=== PATIENT | female | born 1970 | race Caucasian/White ===

== ENCOUNTER → 2024-01-10 09:28 | Outpatient (REF) | payer BC, SELFPAY | LOC: WDC 09:28 | PROVIDERS: ATTENDING PHYSICIAN Nurse Practitioner Family; FAMILY PHYSICIAN Nurse Practitioner | DX: N64.52 Nipple discharge (principal) | CPT/HCPCS: 76642; 77062; 77066 ==

== ENCOUNTER → 2024-02-12 16:15 | Outpatient (REF) | payer BC, SELFPAY | LOC: MRI 3T 16:15 | PROVIDERS: ATTENDING PHYSICIAN Surgery; FAMILY PHYSICIAN Internal Medicine | DX: N64.52 Nipple discharge (principal) | CPT/HCPCS: 77049; A9585 ==

== ENCOUNTER → 2024-02-20 11:01 | Outpatient (REF) | payer BC, SELFPAY | LOC: WDC 11:01 | PROVIDERS: ATTENDING PHYSICIAN Surgery; FAMILY PHYSICIAN Nurse Practitioner | DX: R92.8 Other abnormal and inconclusive findings on diagnostic imaging of breast (principal) | CPT/HCPCS: 76642 ==

== ENCOUNTER 2024-08-31 05:09 | Emergency (ER) | payer BC, SELFPAY ==
[2024-08-31 05:15] VITALS: BP 128/82
--- NOTE | 2024-08-31 07:28 | ED.GENMED ---
History of Present Illness
<Darci Rodney DO - Last Filed: 08/31/24 11:08>
General
Chief Complaint: Throat Problem
Source: patient
Exam Limitations: none
Time Seen by Provider: 08/31/24 07:25
Nursing documentation reviewed up to this point in time: agreed with
<MANDI Pacheco Last Filed: 08/31/24 13:57>
History of Present Illness
History of Present Illness:
53 y/o F with no sig pmh
here with 3 days of sore throat and feeling of swelling in the bakc of her throat with subjective chills/fever
pt says she has had this before when she had strep
no cough, vomiting, nekc swelling
able to toelrate secertions
nothing taken todya for pain
Past History
<MANDI Pacheco Last Filed: 08/31/24 13:57>
Past History
ED Past Medical History: Other (kidney stone)
Social History
Tobacco: Non-smoker
Alcohol: None
Drug: None
Personal:
Living: with family
Employment: Employed
Review of Systems
<MANDI Pacheco Last Filed: 08/31/24 13:57>
Review of Systems
Allergies reviewed?: Yes
All Other Systems: Not applicable
Phy Exam
<MANDI Pacheco Last Filed: 08/31/24 13:57>
Physical Exam
Physical Exam:
GENERAL: Alert , in no apparent distress
EYE: pupils equal and reactive
NECK: Supple
ENT: b/l TM s clear, moderate pharyngeal erythema, trace exudate right posterior tonsillar region, uvula is midline, tolerating secretions, no tonsillar hypertrophy or unilateral enlargement of the tonsils, tender bilateral anterior cervical
lymphadenopathy
CARDIAC: Regular rate and rhythm, no edema
LUNGS: Clear breath sounds bilaterally, no acute respiratory distress, no wheezes/rales/rhonchi, occ cough
ABDOMEN: Soft, without focal tenderness, no r/g, no cvat, normal bowel sounds
NEUROLOGICAL: Alert and oriented, no focal neuro deficits
SKIN: Warm and dry, skin intact.
MUSCULOSKELETAL: No edema, well perfused.
PSYCH: Normal and appropriate interaction.
Course
<Darci Rodney, DO - Last Filed: 08/31/24 11:08>
Orders/Labs/Results
Orders:
Orders
08/31/24 05:24
COVID-19 Antigen Urgent
Source: Nasal Swab
Influenza A+B Rapid Molecular Urgent
TESSIE Source: Nasal Swab
Specimen Description:
Date Specimen was Collected: 08/31/24
Time Specimen was Collected: 05:20
Rapid Strep Group A Urgent
TESSIE Source: Throat/Pharynx
Specimen Description:
Date Specimen was Collected: 08/31/24
Time Specimen was Collected: 05:20
08/31/24 07:28
Amoxicillin [Amoxil] 500 mg PO NOW STA
08/31/24 07:30
Amoxicillin 875 mg/Clav 125 mg [Augmentin 875 mg/125 mg] 1 tablet PO NOW STA
Dexamethasone [Decadron] 10 mg PO NOW STA
Vital Signs
Initial and Last Documented VS:
Initial Vital Signs
Temp Pulse Resp BP Pulse Ox
37.8 C 89 16 128/82 99
08/31/24 05:15 08/31/24 05:15 08/31/24 05:15 08/31/24 05:15 08/31/24 05:15
Last Documented Vital Signs
Temp Pulse Resp BP Pulse Ox
37.8 C 89 16 128/82 99
08/31/24 05:15 08/31/24 05:15 08/31/24 05:15 08/31/24 05:15 08/31/24 05:15
<Philomena Schwartz PA-C - Last Filed: 08/31/24 13:57>
Orders/Labs/Results
Orders:
Orders
08/31/24 05:24
COVID-19 Antigen Urgent
Source: Nasal Swab
Influenza A+B Rapid Molecular Urgent
TESSIE Source: Nasal Swab
Specimen Description:
Date Specimen was Collected: 08/31/24
Time Specimen was Collected: 05:20
Rapid Strep Group A Urgent
TESSIE Source: Throat/Pharynx
Specimen Description:
Date Specimen was Collected: 08/31/24
Time Specimen was Collected: 05:20
08/31/24 07:28
Amoxicillin [Amoxil] 500 mg PO NOW STA
08/31/24 07:30
Amoxicillin 875 mg/Clav 125 mg [Augmentin 875 mg/125 mg] 1 tablet PO NOW STA
Dexamethasone [Decadron] 10 mg PO NOW STA
Vital Signs
Initial and Last Documented VS:
Initial Vital Signs
Temp Pulse Resp BP Pulse Ox
37.8 C 89 16 128/82 99
08/31/24 05:15 08/31/24 05:15 08/31/24 05:15 08/31/24 05:15 08/31/24 05:15
Last Documented Vital Signs
Temp Pulse Resp BP Pulse Ox
37.8 C 89 16 128/82 99
08/31/24 05:15 08/31/24 05:15 08/31/24 05:15 08/31/24 05:15 08/31/24 05:15
<Philomena Schwartz PA-C - Last Filed: 08/31/24 13:57>
MDM/Problems Addressed
Differential Diagnosis Includes:
Strep pharyngitis, early LINING STRAP CLOSER
MDM/Problems Addressed:
53-year-old female with a sore throat for 3 days with a feeling of swelling in the back of her throat, she is able to tolerate secretions and speak clearly. Patient is afebrile here with pharyngeal erythema and slight tonsillar exudate specially on
the right side with tender bilateral lymphadenopathy and no cough. Her rapid strep was positive. I do not believe that she has a LINING STRAP CLOSER but will cover with Augmentin given the unilateral appearance of the exudate on the right side as well as the
patient feeling symptoms worse on the right side when she swallows. Decadron x 1 here and then repeat in 48 hours
<Philomena Schwartz PA-C - Last Filed: 08/31/24 13:57>
*Critical Care Note
Total Time (30-74mins, 75-104mins- exclusive of procedures): Not Applicable
ED Attending Note
<Darci Rodney DO - Last Filed: 08/31/24 11:08>
-
Portions of this chart may have been created with voice recognition software.� Occasional wrong word or��sound alike� substitutions may have occurred due to the inherent limitations of voice recognition software.
Discharge Plan
Departure
Patient Disposition: Home (Routine Discharge)
Date of Disposition: 08/31/24
Time of Disposition: 07:31
Patient with high blood pressure during this ER visit?: No
Condition: Good
Covid-19: Not Applicable
Discharge Problem:
Strep pharyngitis
Instructions: Strep Throat (DC)
Prescriptions:
New
amoxicillin-pot clavulanate 875-125 mg tablet
1 tab PO BID Qty: 14 0RF
dexamethasone 6 mg tablet
6 mg PO ONCE Qty: 1 0RF
Rx Instructions:
TAKE ON 09/02.
Stand Alone Forms: Return to Work
Activity Restrictions/Additional Instructions:
Follow up with primary care in 3-5 days.
YOU HAVE STREP THROAT
AUGMENTIN TWICE A DAY FOR 7 DAYS
TYLENOL EVERY 6 HOURS
MOTRIN EVERY 8 HOURS
YOU WERE GIVEN A DOSE OF STEROIDS TODAY TO HELP WITH PAIN/SWELLING
YOU CAN TAKE A SECDON DOSE ON SATURDAY MORNING 1 TABLET
RETURN FOR: INABILITY TO SWALLOW, TROUBLE BREATHING, HIGH FEVER OR ANY CONCERNS.
Interventions
Interventions:
*Risk Screen - Suicide Last Done: 08/31/24 05:15
*General Assessment Last Done: 08/31/24 05:15
*Neglect/Abuse Screening Last Done: 08/31/24 05:15
*ED COVID-19 Vaccine History Last Done: 08/31/24 05:15
*Nursing Disposition Last Done: 08/31/24 07:47
Discharge Date and Time
Discharge Date/Time: 08/31/24 07:53
Print Language: DIVEHI
[2024-08-31] MEDS: AUGMENTIN 875 MG/125 MG 1 TABLET PO (07:40)
[2024-08-31] MEDS: DECADRON 10 MG PO (07:40)
[2024-08-31 16:01] LABS: COVID-19 Antigen Negative (Negative)
== END 2024-08-31 07:53 | disposition home or self-care (01) ==
LOC: EMR 05:09
PROVIDERS: Emergency Medicine; EMERGENCY PHYSICIAN Emergency Medicine; FAMILY PHYSICIAN Family Medicine
DX: J02.0 Streptococcal pharyngitis (principal)
CPT/HCPCS: 99283; 87070; 87147; 87502; 87811; 87880

== ENCOUNTER → 2024-12-21 18:36 | Outpatient (REF) | payer BC, SELFPAY | LOC: MRI 3T 18:36 | PROVIDERS: ATTENDING PHYSICIAN Surgery; FAMILY PHYSICIAN Internal Medicine | DX: R92.8 Other abnormal and inconclusive findings on diagnostic imaging of breast (principal) | CPT/HCPCS: 77049; A9585 ==

== ENCOUNTER → 2024-12-28 12:55 | Outpatient (REF) | payer BC, SELFPAY | LOC: HWRAD 12:55 | PROVIDERS: ATTENDING PHYSICIAN Surgery; FAMILY PHYSICIAN Internal Medicine | DX: N20.0 Calculus of kidney (principal) | CPT/HCPCS: 74176 ==